=== PATIENT | male | born 2005 | race Two or more races ===

== ENCOUNTER 2025-09-28 17:39 | Emergency (ER) | payer MEDICAID ==
[~2025-09-28] VITALS: Ht 170.2 cm; Wt 66.0 kg
[2025-09-28 17:47] VITALS: BP 129/70; TEMP 37.1; O2SAT 100
[2025-09-28 17:55] VITALS: PULSE 87; RESP 14; O2SAT 98
[2025-10-01 04:08] LABS: CHLAMYDIA TRACHOMATIS NAA Negative (Negative); NEISSERIA GONORRHOEAE NAA Negative (Negative)
== END 2025-09-28 20:06 | disposition left against medical advice (07) ==
LOC: ER 17:39
DX: Z11.3 Encounter for screening for infections with a predominantly sexual mode of transmission (principal)
CPT/HCPCS: 87491; 87591; 99283